=== PATIENT | female | born 1960 | race Caucasian/White ===

== ENCOUNTER 2017-01-31 20:21 | Emergency (ER) | payer OTHER ==
[2017-01-31] MEDS ORDERED: SODIUM CHLORIDE 0.9% 500 ML INFUS.BAG IV ONE (20:28)
[2017-01-31 20:42] VITALS: BP 112/78; PULSE 63; TEMP 97.6; BMI 27.4
[2017-01-31 20:47] LABS: BASOPHIL 1.5 % (0-2.0); MCH 31.4 pg (25.7-33.7); MCHC 34.6 g/dl (32.0-36.0); MEAN CELL VOLUME 90.6 fl (80-96); MEAN PLT VOLUME 7.7 fl (7.5-11.1); NEUTROPHILS 57.6 % (42.8-82.8); PLATELET COUNT 334 K/MM3 (134-434); RDW 12.7 % (11.6-15.6); WHITE BLOOD COUNT 5.6 K/mm3 (4.0-10.0)
[2017-01-31 20:54] LABS: CPK(DFH) 102 IU/L (26-140)
[2017-01-31 20:55] LABS: ALBUMIN 3.8 g/dl (3.5-5.0); ALK PHOS 76 U/L (32-92); ANION GAP 7 (8-16); BILIRUBIN,TOTAL 0.5 mg/dl (0.2-1.0); CALCIUM 8.6 mg/dl (8.4-10.2); CO2 25 mmol/L (22-28); CREATININE 0.9 mg/dl (0.6-1.3); GLUCOSE,RANDOM 177 mg/dl (74-106); PHOSPHOROUS 3.2 mg/dl (2.5-4.6); SGOT/AST 24 U/L (10-42); SGPT/ALT 17 U/L (10-40); TOT PROT 6.5 g/dl (6.4-8.3)
--- NOTE | 2017-01-31 20:55 | PDOC ---
History of Present Illness - General History Source: Patient Exam Limitations: No Limitations - History of Present Illness Initial Comments: 01/31/17 21:01 The patient is a 56 year old female with a significant past medical history of anemia, and gastric bypass (over 15 years ago), who presents to the ED via EMS s /p mini-syncopal episode. Patient states she went to the bathroom to vomit when she passed out. Patient states she was feeling very lethargic, lightheaded, and nauseous prior to passing out. She states her son found her in the bathroom and contacted EMS immediately. According to EMS, she was found diaphoretic. Patient denies any trauma. Patient denies any head pain, neck pain, back pain. Patient denies any SOB, chest pain, fever, chills. Patient denies dysuria, frequency, urgency. Patient states she has experienced similar symptoms in the past. 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 <Xander Trevizo - Last Filed: 01/31/17 21:01> <Sean Saunders - Last Filed: 02/01/17 05:51> - General Chief Complaint: Syncope/Near Syncope Stated Complaint: SYNCOPE Time Seen by Provider: 01/31/17 20:27 Past History <Xander Trevizo - Last Filed: 01/31/17 21:01> - Past Medical History Psychiatric Problems: Yes (ANXIETY/DEPRESSION) Suicide Attempt (Hx): No - Surgical History Cholecystectomy: Yes - Immunization History Td Vaccination: Yes (09/09/2008) Immunization Up to Date: Yes - Psycho/Social/Smoking Cessation Hx Anxiety: Yes Suicidal Ideation: No Smoking History: Never smoked Have you smoked in the past 12 months: No Hx Alcohol Use: No Drug/Substance Use Hx: No Substance Use Type: None <Sean Saunders - Last Filed: 02/01/17 05:51> - Past Medical History Allergies/Adverse Reactions: Allergies Allergy/AdvReac Type Severity Reaction Status Date / Time No Known Allergies Allergy Verified 01/31/17 20:23 Home Medications: Ambulatory Orders Bupropion HCl [Wellbutrin -] 150 mg PO DAILY 04/27/14 Lamotrigine [Lamictal -] 300 mg PO DAILY 04/27/14 Review of Systems - Review of Systems Able to Perform ROS?: Yes Comments:: 01/31/17 21:02 GENERAL/CONSTITUTIONAL: + weakness. No fever or chills. HEAD, EYES, EARS, NOSE AND THROAT: No change in vision. No ear pain or discharge. No sore throat. CARDIOVASCULAR: No chest pain or shortness of breath. RESPIRATORY: No cough, wheezing, or hemoptysis. GASTROINTESTINAL: + nausea, vomiting, diarrhea. No diarrhea or constipation. GENITOURINARY: No dysuria, frequency, or change in urination. MUSCULOSKELETAL: No joint or muscle swelling or pain. No neck or back pain. SKIN: No rash NEUROLOGIC: + loss of consciousness. No headache, vertigo, or change in strength /sensation. ENDOCRINE: No increased thirst. No abnormal weight change. HEMATOLOGIC/LYMPHATIC: + anemia. No easy bleeding, or history of blood clots. ALLERGIC/IMMUNOLOGIC: No hives or skin allergy. <Xander Trevizo - Last Filed: 01/31/17 21:01> *Physical Exam - Vital Signs Last Vital Signs Temp Pulse Resp BP Pulse Ox 97.6 F 63 16 112/78 99 01/31/17 20:28 01/31/17 20:28 01/31/17 20:28 01/31/17 20:28 01/31/17 20:28 - Physical Exam Comments: 01/31/17 21:02 GENERAL: Awake, alert, and fully oriented, in no acute distress HEAD: No signs of trauma EYES: PERRLA, EOMI, sclera anicteric, conjunctiva clear ENT: Auricles normal inspection, hearing grossly normal, nares patent, oropharynx clear without exudates. Moist mucosa NECK: Normal ROM, supple, no lymphadenopathy, JVD, or masses LUNGS: Breath sounds equal, clear to auscultation bilaterally. No wheezes, and no crackles HEART: Regular rate and rhythm, normal S1 and S2, no murmurs, rubs or gallops ABDOMEN: Soft, nontender, normoactive bowel sounds. No guarding, no rebound. No masses EXTREMITIES: Normal range of motion, no edema. No clubbing or cyanosis. No cords, erythema, or tenderness NEUROLOGICAL: Cranial nerves II through XII grossly intact. Normal speech, normal gait SKIN: Warm, Dry, normal turgor, no rashes or lesions noted. <Xander Trevizo - Last Filed: 01/31/17 21:01> ED Treatment Course - LABORATORY CBC & Chemistry Diagram: 01/31/17 20:30 01/31/17 20:30 - ADDITIONAL ORDERS Additional order review: Laboratory Results 01/31/17 01/31/17 20:30 20:30 Sodium 136 Potassium 3.5 Chloride 104 Carbon Dioxide 25 Anion Gap 7 L BUN 14 Creatinine 0.9 D Creat Clearance w eGFR > 60 Random Glucose 177 H D Calcium 8.6 Phosphorus 3.2 Magnesium 2.0 Total Bilirubin 0.5 D AST 24 ALT 17 Alkaline Phosphatase 76 D Creatine Kinase 102 Total Protein 6.5 Albumin 3.8 01/31/17 20:30 RBC 3.88 MCV 90.6 D MCHC 34.6 RDW 12.7 D MPV 7.7 Neutrophils % 57.6 Lymphocytes % 33.0 D Monocytes % 4.9 Eosinophils % 3.0 D Basophils % 1.5 - Medications Given in the ED: ED Medications Discontinued Medications Generic Name Dose Route Start Last Admin Trade Name Freq PRN Reason Stop Dose Admin Sodium Chloride 1,000 ml 01/31/17 20:28 01/31/17 20:30 Normal Saline - IV 01/31/17 20:29 1,000 ml ONCE ONE Administration <aXnder Trevizo - Last Filed: 01/31/17 21:01> - LABORATORY CBC & Chemistry Diagram: 01/31/17 20:30 01/31/17 20:30 <Sean Saunders - Last Filed: 02/01/17 05:51> Medical Decision Making - Medical Decision Making 02/01/17 05:48 recurrent vasovagal episodes with hx of + tilt table. fluids, observed in ED without event on monitor. cardiology fu in place <Sean Saunders - Last Filed: 02/01/17 05:51> *DC/Admit/Observation/Transfer - Attestations Scribe Attestion: 01/31/17 21:02 Documentation prepared by Xander Trevizo, acting as medical front desk specialist for Sean Saunders MD. <Xander Trevzio - Last Filed: 01/31/17 21:01> <Sean Saunders - Last Filed: 02/01/17 05:51> Diagnosis at time of Disposition: Episode of syncope Qualifiers: Syncope type: vasovagal syncope Qualified Code(s): R55 - Syncope and collapse - Discharge Dispostion Disposition: HOME Condition at time of disposition: Good - Referrals Referrals: Adalid Solorio MD [Primary Care Provider] - - Patient Instructions Printed Discharge Instructions: DI for Syncope in Adults (Fainting)
[2017-01-31 21:15] LABS: TROPONIN I (DFP) < 0.03 ng/ml (0.03-0.50)
--- NOTE | 2017-02-01 20:35 | EKG ---
Test Reason : Blood Pressure : / mmHG Vent. Rate : 064 BPM Atrial Rate : 064 BPM P-R Int : 126 ms QRS Dur : 098 ms QT Int : 438 ms P-R-T Axes : 055 044 054 degrees QTc Int : 451 ms NORMAL SINUS RHYTHM WITH SINUS ARRHYTHMIA NORMAL ECG NO PREVIOUS ECGS AVAILABLE Confirmed by LIYAH LEPE MD ([id number]) on 02/01/2017 8:34:52 PM Referred By: RAQUEL ROSA Confirmed By:LIYAH LEPE MD
== END 2017-01-31 21:34 | disposition home or self-care (01) ==
LOC: FER 20:21
DX: R55 Syncope and collapse (principal); D64.9 Anemia, unspecified; Z98.84 Bariatric surgery status; F41.8 Other specified anxiety disorders
CPT/HCPCS: 36415; 80053; 82550; 83735; 84100; 84484; 85025; 93005; 93010; 99281-25

== ENCOUNTER 2021-12-21 13:40 | Emergency (ER) | payer OTHER ==
[2021-12-21 13:54] VITALS: BP 139/83; PULSE 79; TEMP 98.4; BMI 28.3
[2021-12-21] MEDS ORDERED: LIDOCAINE 2.5%/PRILOCAINE 2.5% 30 GRAM TUBE TP ONE (14:04)
[2021-12-21] MEDS ORDERED: LIDOCAINE 2.5%/PRILOCAINE 2.5% (5 Gram/TUBE) TP ONE (14:05)
[2021-12-21] MEDS ORDERED: MAG HYDROX/AL HYDROX/SIMETH 30 ML UNIT-DOSE CUP PO ONE (14:36)
[2021-12-21] MEDS ORDERED: MAG HYDROX/AL HYDROX/SIMETH 30 ML UNIT-DOSE CUP ONE (14:39)
[2021-12-21] MEDS ORDERED: LIDOCAINE HCL 2% (50ML VIAL) SQ ONE (15:35)
[2021-12-21] MEDS ORDERED: LIDO 2%/EPI 1:200000 PRESRVFRE (20 ML SDVIAL) ONE (15:36)
== END 2021-12-21 16:14 | disposition home or self-care (01) ==
LOC: SUPCPDRO 13:40 → FER 13:40
PROC: 3E023GC Introduction of Other Therapeutic Substance into Muscle, Percutaneous Approach (ICD-10-PCS; principal; 2021-12-21)
DX: S01.81XA Laceration without foreign body of other part of head, initial encounter (principal); W22.8XXA Striking against or struck by other objects, initial encounter
CPT/HCPCS: 96372; 99283-25

== ENCOUNTER 2024-05-14 15:26 | Emergency (ER) | payer OTHER ==
[2024-05-14 15:54] VITALS: BP 155/93; PULSE 68; RESP 20; TEMP 97.7
== END 2024-05-14 16:33 | disposition home or self-care (01) ==
LOC: FER 15:26
DX: S09.90XA Unspecified injury of head, initial encounter (principal); R11.0 Nausea; W22.8XXA Striking against or struck by other objects, initial encounter
CPT/HCPCS: 70450-TC; 99284-25